=== PATIENT | female | born 1955 | race Caucasian/White ===

== ENCOUNTER → 2018-10-09 | Day surgery (SDC) | payer BC ==
--- NOTE | 2018-10-10 15:10 | PATH ---
Surgical Pathology Report Patient Name: ISAURA GOLD [facility] [place]. Rec. #: [id number] /Age/Gender: 1955 (Age: 63) / F Account: [id number] Location: [facility] Taken: 10/09/2018 Received: 10/09/2018 Reported: 10/10/2018 Physicians: Muriel Riley M.D. Specimen(s) Received A: LEFT AXILLARY LN (SITE 1) B: LEFT INTRAMAMMARY LN-AXILLARY TAIL (SITE 2) Clinical History Ultrasound findings: Highly suspicious/malignant Final Diagnosis A. LYMPH NODE, LEFT AXILLARY (SITE #1), CORE BIOPSY: METASTATIC CARCINOMA, EXTENSIVELY INVOLVING LYMPH NODE. (SEE NOTE). Note: The tissue cores are comprised predominantly of high-grade carcinoma with scant residual lymph node tissue identified, consistent with lymph node extensively involved by metastatic carcinoma. B. LYMPH NODE, LEFT INTRAMAMMARY- AXILLARY TAIL (SITE #2), CORE BIOPSY: METASTATIC CARCINOMA, EXTENSIVELY INVOLVING LYMPH NODE. Results of ER, MD & Her2 studies will be reported separately in an addendum. Electronically Signed Lizzy Maya M.D. Addendum Reported: 10/21/2018 Addendum Diagnosis Results of ER and MD studies performed on block B at [facility] are as follows: ER (clone [id number] mouse monoclonal antibody by [employer]): 0 % nuclear staining (Negative). MD (clone16 mouse monoclonal antibody by [employer]): 0 % nuclear staining (Negative). Results of Her2 (IHC) studies performed on block B at [facility] [place], [place] ([id number]) are as follows: Her2 IHC (EP3 from [employer], formerly known as [id number], using Cherry Polymer Refine detection kit): 0 (Negative). Comment: Additional immunohistochemical stains are being performed and the results will be reported in an additional addendum. Positive and negative controls (internal if applicable) show appropriate results. Formalin fixation and cold ischemic times are within current ASCO/CAP recommendations for ER, MD and Her2 testing. Lizzy Maya M.D. Addendum Reported: 10/23/2018 Addendum Diagnosis Immunohistochemical studies performed (on block B) at [facility] [place], [place] ([id number]) demonstrate strong positivity in the tumor cells for AE1/3, CK5/6, p40, TTF-1 with patchy weak positivity for GURMEET-3. The tumor cells are negative for CK7, CK20, GCDFP, mammaglobin, CDX-2, Napsin-A and thyroglobulin. This immunoprofile, although not specific, is compatible with mammary origin after other primary sites, particularly lung have been ruled out. Although very unusual, TTF-1 positivity has been reported in a subset of primary mammary carcinomas, more so in those of high-grade triple-negative basal-like phenotype (CK5/6 positive), as in this case. Correlation with clinical and radiologic findings is recommended. Case discussed with Dr. Barnes on 10/22/18. Lizzy Maya M.D. Gross Description A. Received in formalin labeled "left axillary LN biopsy #1," is a 2.5 x 2.3 x 0.3 cm aggregate of multiple wadsworth-yellow, irregular to cylindrical portions of fibroadipose tissue admixed with abundant blood clot. The formalin is filtered and the specimen is entirely submitted in one cassette. B. Received in formalin labeled "left intramammary -axillary tail lymph node #2," is a 2.2 x 2.0 x 0.2 cm aggregate of multiple wadsworth-yellow, irregular to cylindrical portions of fibroadipose tissue admixed with blood clot. The formalin is filtered and the specimen is entirely submitted in one cassette. Time to formalin fixation: 2 minutes Total formalin fixation time: Approximately 8 hours. 10/09/201810/09/2018
== END | disposition home or self-care (01) ==
LOC: FRADUS-SUR 09:35
PROVIDERS: ATTEND Family Medicine
PROC: 07B63ZX Excision of Left Axillary Lymphatic, Percutaneous Approach, Diagnostic (ICD-10-PCS; principal; 2018-10-09)
PROC: BH47ZZZ Ultrasonography of Upper Extremity (ICD-10-PCS; 2018-10-09)
DX: C77.3 Secondary and unspecified malignant neoplasm of axilla and upper limb lymph nodes (principal); R59.0 Localized enlarged lymph nodes
CPT/HCPCS: 38505; 76942-TC; 87899; 88305-TC; 88342-TC; A4648

== ENCOUNTER 2020-03-09 06:09 | Day surgery (SDC) | payer BC ==
[2020-03-04 14:46] VITALS: BMI 31.6
--- NOTE | 2020-03-08 10:49 | HP ---
Admitting History and Physical - Primary Care Physician PCP: Giles Barnes - Admission Chief Complaint: Left upper arm abscess/seroma History of Present Illness: 65 yo female S/P left MRM (06/2019), was noted to have swelling and erythema of the upper medial left arm on exam. Approximately 40 cc was aspirated in the office but more debri/fluid was noted in the cavity that was unable to be aspirated. The patient is now presenting for I and D and aspiration. 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 - Smoking History Smoking history: Never smoked Have you smoked in the past 12 months: No Home Medications - Allergies Allergies/Adverse Reactions: Allergies Allergy/AdvReac Type Severity Reaction Status Date / Time No Known Allergies Allergy Verified 03/04/20 14:36 - Home Medications Home Medications: Ambulatory Orders Capacitibene 1,500 mg PO BID 03/04/20 Cefadroxil 500 mg PO BID 03/04/20 Metoprolol Succinate 25 mg PO DAILY 03/04/20 Family Medical History Family Hx Cancer: Mother (basal cell cancer), Father (squamous cell), Sister (basal cell) Review of Systems - Review of Systems Constitutional: reports: No Symptoms Breasts: reports: See HPI Physical Examination Constitutional: Yes: Well Nourished, Calm Breast(s): Yes: Left (Scars c/w mastectomy noted. No suspicious masses or adenopathy noted bilaterally. Swelling and erythema noted in the upper medial left arm c/w chronic seroma.) Problem List - Problems (1) Breast cancer, left Code(s): C50.912 - MALIGNANT NEOPLASM OF UNSPECIFIED SITE OF LEFT FEMALE BREAST (2) Left arm cellulitis Code(s): L03.114 - CELLULITIS OF LEFT UPPER LIMB (3) Abscess of left upper extremity Code(s): L02.414 - CUTANEOUS ABSCESS OF LEFT UPPER LIMB Assessment/Plan I and D of left upper arm
[2020-03-09] MEDS ORDERED: MIDAZOLAM HCL 2 MG/2 ML SINGLE DOSE VIAL ONE (07:07)
[2020-03-09] MEDS ORDERED: PROPOFOL 20 ML ONE (07:07)
[2020-03-09] MEDS ORDERED: SEVOFLURANE 250 ML BTL ONE (07:08)
[2020-03-09] MEDS ORDERED: LIDOCAINE HCL 1%, 10 MG/ML (20ML VIAL) ONE (07:10)
[2020-03-09] MEDS ORDERED: ONDANSETRON 4 MG/2 ML VIAL ONE (07:46)
[2020-03-09] MEDS ORDERED: DEXAMETHASONE SOD PHOSPHATE 4 MG/1 ML VIAL ONE (07:46)
[2020-03-09] MEDS ORDERED: ceFAZolin SODIUM 1 GM VIAL ONE (07:48)
[2020-03-09] MEDS ORDERED: KETOROLAC TROMETHAMINE 30 MG/1 ML VIAL ONE (08:09)
[2020-03-09] MEDS ORDERED: LIDOCAINE HCL 1%, 10 MG/ML (20ML VIAL) ID ONE (08:10)
[2020-03-09] MEDS ORDERED: oxyCODONE HCL 5 MG TABLET PO PRN (08:26)
[2020-03-09] MEDS ORDERED: ONDANSETRON 4 MG/2 ML VIAL IVPUSH PRN ×2 (08:26→08:51)
[2020-03-09] MEDS ORDERED: LACTATED RINGERS SOLUTION 1,000 ML IV SCH (08:30)
[2020-03-09] MEDS ORDERED: KETOROLAC TROMETHAMINE 30 MG/1 ML VIAL IVPUSH PRN (08:51)
[2020-03-09] MEDS ORDERED: DEXTROSE 5%-0.45% SALINE 1,000 ML IV SCH (09:00)
[2020-03-09 09:09] VITALS: TEMP 97.8
[2020-03-09 09:32] VITALS: BP 105/74; PULSE 85
--- NOTE | 2020-03-10 14:49 | OP ---
DATE OF OPERATION: 03/09/2020 PREOPERATIVE DIAGNOSIS: Left upper arm abscess. POSTOPERATIVE DIAGNOSIS: Left upper arm abscess, possibly recurrent cancer and necrotic tumor. PROCEDURE: Left upper arm incision, debridement, and drainage with biopsy and culture sent. ANESTHESIA: General laryngeal mask airway anesthesia. COMPLICATIONS: There were no complications. PRIMARY SURGEON: Giles Barnes MD INDICATIONS: Briefly, the patient is a 65-year-old, G3, P2, postmenopausal white female of [place] descent with no family history of breast or ovarian cancer. The patient was found to have a palpable density around the left axillary region and was noted to have multiple highly suspicious axillary lymph nodes and underwent a core biopsy showing triple negative breast cancer. There was an enhancing mass in the left axillary region between the pectoralis major and minor muscle, at least 10 cm in size on MRI. She ended up getting neoadjuvant chemotherapy with ACT and had significant neuropathy during the chemotherapy. 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 There was some fibrous scarring seen in 6 of the nodes. She underwent post-mastectomy radiation which finished in August of 2019 and is being followed by the medical oncologist and is on oral chemotherapy. She was getting physical therapy for lymphedema and was noted to have some swelling and redness towards the upper medial aspect of the left arm and developed some drainage and was seen in my office. I attempted to aspirate fluid from this collection but could not fully aspirate it. This was extremely painful to her and was felt to be a possible infected seroma. This could not be aspirated in the office, and she was brought to the operating room for incision, debridement, and drainage. The patient was brought in for the procedure on March 09, 2020. In the holding area, site verification was made and informed consent was obtained. She was brought into the operating room and laid on the OR table in a supine position. Venodynes were placed on the lower extremities prior to induction. She received 2 g of Ancef prior to incision. She underwent general laryngeal mask airway anesthesia. The left upper arm was sterilely prepped and draped in usual fashion, as well as the left axilla. Timeout was performed. Once she was properly anesthetized, incision was made longitudinally along the left upper medial aspect of the left arm, and the cavity was entered, and there was necrotic material which was aspirated from the cavity using the suction. There was a lot of necrotic tissue as well as some pale, firm tissue in the wall of the abscess cavity. This tissue was found to be slightly necrotic but was debrided and tissue was sent to pathology as specimen. This was highly suspicious for possible recurrence. The wound was copiously irrigated with warm sterile saline, and electrocautery was used for some hemostasis. The wound was left open and packed with 1-inch plane packing and then wrapped with a Kerlix and Demarco bandage. We did instill about 10 mL of 1% lidocaine into the wound at the end of the case. Laryngeal mask airway tube was removed. She was awake and alert, brought to the postanesthesia care unit in stable condition. Estimated blood loss was about 20 mL. She was hemodynamically stable throughout. The patient will be discharged home the same day and will follow up tomorrow for a dressing change and will arrange visiting nurse services because she will need daily dressing changes and will follow up on the pathology. All sponge and needle counts were correct at the end of the case. GILES BARNES M.D. [id number]
--- NOTE | 2020-03-16 09:35 | PATH ---
Surgical Pathology Report Patient Name: ISAURA GOLD [facility]. Rec. #: [id number] /Age/Gender: 1955 (Age: 65) / F Account: [id number] Location: COUNTS INCLUDE 234 BEDS AT THE [facility] Taken: 03/09/2020 Received: 03/09/2020 Reported: 03/16/2020 Physicians: Giles Barnes M.D. Specimen(s) Received DEBRIDEMENT LEFT UPPER ARM Clinical History Left axillary wound, history of recent left mastectomy for metaplastic breast cancer, multiple positive lymph nodes Final Diagnosis UPPER ARM, LEFT, DEBRIDEMENT: HIGH- GRADE CARCINOMA, EXTENSIVELY NECROTIC, CONSISTENT WITH PRIOR KNOWN METAPLASTIC CARCINOMA (WITH SQUAMOUS DIFFERENTIATION). (SEE NOTE) Note: Immunohistochemical stains performed at [place], [place] ([id number]) show the following results: the carcinoma is positive for AE1/3, CK5/6, p40 and GURMEET-3 (patchy), while negative for CK-7, CK-20 and mammaglobin. The morphologic features and immunoprofile are similar to carcinoma described in prior left breast with axillary dissection (modified radical mastectomy) performed at [place], [place]([id number]). Results of ER, TX & Her2 studies will be reported separately in an addendum. Case discussed with Dr. Giles Barnes on 03/15/20. PD-L1 immunohistochemical stain is also being performed and the results will be reported in an additional addendum. Electronically Signed Lizzy Maya M.D. Addendum Reported: 03/18/2020 Addendum Diagnosis Results of ER and TX studies performed on this specimen (block 2) at [facility] are as follows: ER (clone [id number] mouse monoclonal antibody by [employer]): _X_ Negative PgR (clone16 mouse monoclonal antibody by [employer]): _X_ Negative Results of Her2 (IHC) studies performed on this specimen (block 1) at [place], [place] ([id number]) are as follows: Her2 IHC (EP3 from [employer], formerly known as [id number], using Cherry Polymer Refine detection kit): 0 (Negative). Positive and negative controls (internal if applicable) show appropriate results. Formalin fixation time is within current ASCO/CAP recommendations for ER, TX and Her2 testing. Time to formalin fixation is not given. Lizzy Maya M.D. Addendum Reported: 03/30/2020 Addendum Diagnosis Results of PD-L1 SP142 FDA (TECENTRIQ) test for TNBC (Breast) sent to [facility], [place], [place] and performed and reported by [facility], ([id number]) shows the following: Results: Marker Score % Immune Cells Stained IC Intensity 3+ Interpretation PD-L1 SP142 FDA (TECENTRIQ) for TNBC (Breast) IC >/= 1% Expression based on criteria for TNBC 2% 3+ EXPRESSED Reference Range: Reference Ranges Expressed/ Associated with enhanced OS >/= 1% IC No Expression/ Does not preclude response < 1% IC See [employer] [facility] report for additional details. Lizzy Maya M.D. Gross Description Received in formalin labeled "debridement left upper arm," is a 6.5 x 5.5 x 2.0 cm aggregate of multiple wadsworth-eid, necrotic portions of soft tissue. Integration Architect sections are submitted in three cassettes. 03/10/2020 saudi03/10/2020
== END 2020-03-09 09:45 | disposition home health service (06) ==
LOC: FASU 06:09
PROVIDERS: ATTEND Surgery Surgical Oncology
PROC: 0JBF0ZZ Excision of Left Upper Arm Subcutaneous Tissue and Fascia, Open Approach (ICD-10-PCS; 2020-03-09)
PROC: 0H9CXZZ Drainage of Left Upper Arm Skin, External Approach (ICD-10-PCS; principal; 2020-03-09 07:55)
DX: L02.414 Cutaneous abscess of left upper limb (principal); L03.114 Cellulitis of left upper limb; C50.912 Malignant neoplasm of unspecified site of left female breast; C76.8 Malignant neoplasm of other specified ill-defined sites
CPT/HCPCS: 87070; 87205; 88305-TC; 88342-TC; 94760